=== PATIENT | female | born 1950 | race Caucasian/White ===

== ENCOUNTER 2020-07-22 11:06 | Outpatient (CLI) | payer MEDICARE, BC | END 2020-07-22 11:07 | disposition home or self-care (01) | LOC: CSHMAMMO 11:06 | PROVIDERS: ATTEND Obstetrics & Gynecology | DX: Z12.31 Encounter for screening mammogram for malignant neoplasm of breast (principal) | CPT/HCPCS: 77063; 77067 ==

== ENCOUNTER 2022-08-18 11:46 | Outpatient (CLI) | payer MEDICARE, BC | END 2022-08-18 11:47 | disposition home or self-care (01) | LOC: CSHMAMMO 11:46 | PROVIDERS: ATTEND Obstetrics & Gynecology | DX: Z12.31 Encounter for screening mammogram for malignant neoplasm of breast (principal) | CPT/HCPCS: 77063; 77067 ==

== ENCOUNTER 2023-03-23 12:48 | Outpatient (CLI) | payer MEDICARE, BC | END 2023-03-23 12:49 | disposition home or self-care (01) | LOC: CSHMAMMO 12:48 | PROVIDERS: ATTEND Obstetrics & Gynecology | DX: M85.89 Other specified disorders of bone density and structure, multiple sites (principal) | CPT/HCPCS: 77080 ==